=== PATIENT | male | born 1960 | race Two or more races ===

== ENCOUNTER 2024-06-23 08:37 | Inpatient (IN) | payer OTHER ==
[~2024-06-23] VITALS: Ht 172.7 cm; Wt 81.6 kg
[2024-06-23 09:06] VITALS: BP 139/80
[2024-06-23 09:33] LABS: PH,URINE 5.5 (5.0-8.0); URINE APPEARANCE Clear; URINE BILIRRUBIN Negative (NEGATIVE); URINE BLOOD Negative; URINE COLOR Yellow; URINE KETONE Negative (NEGATIVE); URINE LEUKOCYTE Negative; URINE NITRATE Negative; URINE PROTEIN Negative (NEGATIVE); URINE UROBILINOGEN 0.2 E.U./dl
[2024-06-23] MEDS ORDERED: ZETIA10 MG PO (09:37)
[2024-06-23] MEDS ORDERED: TOPROL XL100 M1 PO (09:38)
[2024-06-23] MEDS ORDERED: JARDIANCE25 MG PO (09:38)
[2024-06-23 09:39] LABS: HEMATOCRIT 50.6 % (39.0-48.0); HEMOGLOBIN 17.1 g/dL (13-16.00); MEAN CELL VOLUME 89.2 fL (80.0-100.00); MEAN CORPUSCULAR HEMOGLOBIN 30.1 pg (27.00-32.0); MEAN CORPUSCULAR HGB CONC 33.7 g/dl (32.0-36.0); PLATELET COUNT 187 K/uL (150-450); RED BLOOD COUNT 5.67 M/uL (4.00-6.00)
[2024-06-23] MEDS ORDERED: PLAVIX75 MG PO (09:39)
[2024-06-23] MEDS ORDERED: NORVASC2.5 M1 PO (09:39)
[2024-06-23] MEDS ORDERED: OMEGA-31000 MG PO (09:40)
[2024-06-23] MEDS ORDERED: HYDRODIURIL12.5 MG PO (09:40)
[2024-06-23] MEDS ORDERED: CLONAZEPAM0.5 MG PO (09:40)
[2024-06-23] MEDS ORDERED: CRESTOR40 MG PO (09:40)
[2024-06-23] MEDS ORDERED: VASOTEC2.5 MG (09:41)
[2024-06-23] MEDS ORDERED: FLUOR OP OPHT (09:42)
[2024-06-23] MEDS ORDERED: LATANOPROST2.5 ML OP (09:42)
[2024-06-23] MEDS ORDERED: BUPROPION XL450 MG (09:43)
[2024-06-23 09:44] LABS: URINE BACTERIA 8.5 uL (0.0-1933); URINE EPITHELIAL CELLS 1.8 uL (0.0-38.8); URINE WBC 2.5 uL (0.0-23.2)
[2024-06-23 10:06] LABS: INR 1.03; PARTIAL THROMBOPLASTIN TIME 29.9 SECONDS (22.0-34.0); PROTHROMBIN TIME 11.2 SECONDS (9.0-11.5)
[2024-06-23 10:18] LABS: URINE GLUCOSE >=1000 MG/DL (NEGATIVE); URINE RBC 1.4 uL (0.0-20.8)
[2024-06-23 10:30] LABS: ALBUMIN 4.2 gm/dL (3.4-5.0); BILIRUBIN TOTAL 0.84 mg/dL (0.3-1.2); CALCIUM 9.7 mg/dL (8.5-10.1); CREATININE SERUM 0.92 mg/dL (0.70-1.30); GFR 83.36; POTASSIUM 4.46 mEq/L (3.5-5.1); TOTAL PROTEIN 7.2 gm/dL (6.4-8.2)
[2024-06-23 11:08] LABS: RH NEGATIVE
[2024-07-02] MEDS ORDERED: ENOXAPARIN SODIUM 40 MG/0.4 ML SYRINGE SUBCUTANEO ONE (09:38)
[2024-07-02] MEDS ORDERED: CEFAZOLIN SODIUM 1,000 MG VIAL ONE ×2 (09:39→17:25)
[2024-07-02] MEDS ORDERED: BUPIVACAINE HCL/MPF 0.5% 30ML VIAL ONE (10:50)
[2024-07-02] MEDS ORDERED: HEMOSTATIC MATRIX 1 KIT KIT TOP ONE (10:50)
[2024-07-02] MEDS ORDERED: SURGIFLO APPLICATOR 1 EACH APPL TOP ONE (10:50)
[2024-07-02] MEDS ORDERED: SUGAMMADEX SODIUM 200 MG/2 ML VIAL IV ONE (14:58)
[2024-07-02] MEDS ORDERED: OxyCODONE HCL/APAP UD (PERCOCET) PO PRN (16:00)
[2024-07-02] MEDS ORDERED: RINGERS SOLUTION,LACTATED 1,000 ML IV SCH (16:00)
[2024-07-02] MEDS ORDERED: ONDANSETRON HCL 2 MG/ML VIAL IV PRN (16:00)
[2024-07-02] MEDS ORDERED: MORPHINE SULFATE 4 MG/ML CARTRIDGE IV PRN (16:00)
[2024-07-02] MEDS ORDERED: POLYETHYLENE GLYCOL 3350 17 GM BLIST.PACK PO SCH (17:00)
[2024-07-02] MEDS ORDERED: GABAPENTIN 300 MG CAPSULE PO SCH (17:00)
[2024-07-02] MEDS ORDERED: CEFAZOLIN SODIUM 1,000 MG VIAL IV SCH (18:00)
[2024-07-02] MEDS ORDERED: MORPHINE SULFATE 4 MG/ML VIAL IV ONE (19:15)
[2024-07-02] MEDS ORDERED: CLONAZEPAM 0.5 MG TABLET PO SCH (21:00)
[2024-07-02] MEDS ORDERED: FAMOTIDINE/PF 20 MG/2 ML VIAL IV SCH (21:00)
[2024-07-02] MEDS ORDERED: FAMOTIDINE/PF 20 MG/2 ML VIAL ONE (21:14)
[2024-07-03 00:43] VITALS: BP 99/57; O2SAT 98
[2024-07-03 06:50] LABS: HEMATOCRIT 41.7 % (39.0-48.0); HEMOGLOBIN 14.7 g/dL (13-16.00); MEAN CELL VOLUME 86.9 fL (80.0-100.00); MEAN CORPUSCULAR HEMOGLOBIN 30.6 pg (27.00-32.0); MEAN CORPUSCULAR HGB CONC 35.2 g/dl (32.0-36.0); PLATELET COUNT 164 K/uL (150-450)
[2024-07-03 07:32] LABS: ALBUMIN 3.1 gm/dL (3.4-5.0); CALCIUM 8.2 mg/dL (8.5-10.1); CREATININE SERUM 0.94 mg/dL (0.70-1.30); GFR 81.32; PHOSPHOROUS 3.8 mg/dL (2.5-4.9); POTASSIUM 4.43 mEq/L (3.5-5.1)
[2024-07-03 08:12] VITALS: BP 142/70; O2SAT 95
[2024-07-03 08:31] VITALS: BP 148/72; O2SAT 96
[2024-07-03] MEDS ORDERED: ENOXAPARIN SODIUM 40 MG/0.4 ML SYRINGE SUBCUTANEO SCH (09:00)
[2024-07-03] MEDS ORDERED: METOPROLOL SUCCINATE 100 MG TAB.SR.24H PO SCH (09:00)
[2024-07-03] MEDS ORDERED: HYDROCHLOROTHIAZIDE 12.5 MG CAPSULE PO SCH (09:00)
[2024-07-03] MEDS ORDERED: AMLODIPINE BESYLATE 2.5 MG TABLET PO SCH (09:00)
[2024-07-03] MEDS ORDERED: ENALAPRIL MALEATE 2.5 MG TABLET PO SCH (09:00)
== END 2024-07-03 10:29 | disposition home or self-care (01) | DRG 708 ==
LOC: CIR.AMB 07-02 07:57 → O/R 07-02 08:00 → CIR.AMB 07-02 08:07 → O/R 07-02 09:33 → CIR.AMB 07-02 12:30 → EDSTATUS 07-02 12:30 → SURH 07-02 12:30
PROVIDERS: ADMIT Urology; ATTEND Urology
PROC: 8E0W4CZ Robotic Assisted Procedure of Trunk Region, Percutaneous Endoscopic Approach (ICD-10-PCS; 2024-07-02)
PROC: 0VT04ZZ Resection of Prostate, Percutaneous Endoscopic Approach (ICD-10-PCS; principal; 2024-07-02 12:30)
DX: C61 Malignant neoplasm of prostate (principal)
CPT/HCPCS: 55866; S2900

== ENCOUNTER 2024-07-09 09:40 | Outpatient (CLI) | payer OTHER ==
[~2024-07-09 09:40] MED LIST: BUPROPION XL450 MG; CLONAZEPAM0.5 MG PO; CRESTOR40 MG PO; FLUOR OP OPHT; HYDRODIURIL12.5 MG PO; JARDIANCE25 MG PO; LATANOPROST2.5 ML OP; NORVASC2.5 M1 PO; OMEGA-31000 MG PO; PLAVIX75 MG PO; TOPROL XL100 M1 PO; VASOTEC2.5 MG; ZETIA10 MG PO
== END 2024-07-09 09:44 | disposition home or self-care (01) ==
LOC: TOM 09:40
PROVIDERS: ATTEND Urology
DX: C61 Malignant neoplasm of prostate (principal)

== ENCOUNTER 2024-07-21 15:29 | Inpatient (IN) | payer OTHER ==
[~2024-07-21] VITALS: Ht 172.7 cm; Wt 74.4 kg
[2024-07-21] MEDS ORDERED: HYDROCHLOROTH12.5 MG (15:54)
[2024-07-21] MEDS ORDERED: ENALAPRIL MALEA10 MG PO (15:55)
[2024-07-21] MEDS ORDERED: TOPROL XL100 M1 PO (15:55)
[2024-07-21] MEDS ORDERED: AMLODIPINE (15:55)
[2024-07-21] MEDS ORDERED: OMEGA-31000 MG PO (15:56)
[2024-07-21] MEDS ORDERED: EZALLOR SPRINKL40 MG PO (15:56)
[2024-07-21] MEDS ORDERED: EZETIMIBE10 MG PO (15:56)
[2024-07-21] MEDS ORDERED: CLONAZEPAM0.5 M1 PO (15:57)
--- NOTE | 2024-07-21 15:58 | NUR ---
PTE ALERTA Y ORIENTADOI X3 REFIERE QUE FUE OPERADO POR EL DR. ZULEYMA RODRIGUEZ EL DE LA PRESTATA. PTE REFIERE DOLRO PELVICO, ORINAR POCO Y KEESHA EN LA ORINA. SE MIDEN S/V Y SE UBICA.
[2024-07-21] MEDS ORDERED: CEFTRIAXONE SODIUM 2,000 MG VIAL IV ONE (16:45)
[2024-07-21 17:05] LABS: HEMATOCRIT 44.6 % (39.0-48.0); HEMOGLOBIN 14.8 g/dL (13-16.00); MEAN CELL VOLUME 88.5 fL (80.0-100.00); MEAN CORPUSCULAR HEMOGLOBIN 29.4 pg (27.00-32.0); MEAN CORPUSCULAR HGB CONC 33.3 g/dl (32.0-36.0); PLATELET COUNT 405 K/uL (150-450); RED BLOOD COUNT 5.04 M/uL (4.00-6.00); RED CELL DISTRIBUTION WIDTH 13.3 % (11.5-14.5)
[2024-07-21 17:06] LABS: URINE APPEARANCE Cloudy; URINE BILIRRUBIN Negative (NEGATIVE); URINE BLOOD Large; URINE COLOR Orange; URINE KETONE Negative (NEGATIVE); URINE LEUKOCYTE Moderate; URINE NITRATE Negative; URINE UROBILINOGEN 0.2 E.U./dl
[2024-07-21 17:12] LABS: URINE BACTERIA 165.2 uL (0.0-1933); URINE EPITHELIAL CELLS 4.9 uL (0.0-38.8); URINE WBC 1170.3 uL (0.0-23.2)
[2024-07-21 17:14] LABS: URINE CAST 0.44 uL (0.0-1.40); URINE GLUCOSE >=1000 MG/DL (NEGATIVE); URINE PROTEIN 100 (NEGATIVE); URINE RBC > 10558.9 uL (0.0-20.8)
[2024-07-21 17:32] LABS: ALBUMIN 3.2 gm/dL (3.4-5.0); BILIRUBIN TOTAL 0.27 mg/dL (0.3-1.2); CALCIUM 9.5 mg/dL (8.5-10.1); CREATININE SERUM 1.05 mg/dL (0.70-1.30); GFR 72.29; GLOBULINA 4.6 G/DL (2.4-3.5); POTASSIUM 4.67 mEq/L (3.5-5.1); TOTAL PROTEIN 7.8 gm/dL (6.4-8.2)
[2024-07-21] MEDS ORDERED: OxyCODONE HCL/APAP UD (PERCOCET) PO ONE (18:00)
--- NOTE | 2024-07-21 18:05 | NUR ---
SE EDUCA PACIENTE SOBRE EL [place] MEDICO Y MIGUELITO REFIERE ENTENDER. SE CANALIZA Y SE ADMINITRA MEDICAMENTOS DEMETRI ORDEN MEDICA. SE SHIRAZ MUESTRAS DE LABORATORIOS Y SE ENTREGA ENVASE DE U/A Y U/C
[2024-07-21] MEDS ORDERED: 0.9 % SODIUM CHLORIDE 1,000 ML IV SCH ×2 (20:00→23:45)
--- NOTE | 2024-07-21 22:18 | NUR ---
DR.SOTO VINCENT PALM [address] [facility].
[2024-07-21] MEDS ORDERED: CEFTRIAXONE SODIUM 2,000 MG in 0.9 % SODIUM CHLORIDE 100 ML IV SCH (23:34)
[2024-07-21] MEDS ORDERED: CLONAZEPAM 1 MG TABLET PO SCH (23:35)
[2024-07-21] MEDS ORDERED: FAMOTIDINE/PF 20 MG in 0.9 % SODIUM CHLORIDE 8 ML IV PUSH SCH (23:35)
[2024-07-21] MEDS ORDERED: AMLODIPINE BESYLATE 2.5 MG TABLET PO SCH (23:39)
[2024-07-21] MEDS ORDERED: ENALAPRIL MALEATE 10 MG TABLET PO SCH (23:40)
[2024-07-21] MEDS ORDERED: ACETAMINOPHEN 500 MG GEL..CAP PO PRN (23:45)
[2024-07-22 01:11] VITALS: BP 150/70; O2SAT 100
[2024-07-22] MEDS ORDERED: MORPHINE SULFATE 4 MG/ML CARTRIDGE IV ONE (01:15)
[2024-07-22 01:29] LABS: INR 1.1; PARTIAL THROMBOPLASTIN TIME 30.5 SECONDS (22.0-34.0); PROTHROMBIN TIME 11.9 SECONDS (9.0-11.5)
[2024-07-22 04:27] VITALS: BP 155/73; O2SAT 95
[2024-07-22] MEDS ORDERED: HYDROCHLOROTHIAZIDE 12.5 MG CAPSULE PO SCH (09:00)
[2024-07-22] MEDS ORDERED: METOPROLOL SUCCINATE 100 MG TAB.SR.24H PO SCH (09:00)
[2024-07-22] MEDS ORDERED: OXYBUTYNIN CHLORIDE 5 MG TABLET PO NR (11:30)
[2024-07-22 12:04] VITALS: BP 180/90
[2024-07-22 16:31] VITALS: BP 141/79; O2SAT 99
[2024-07-22 17:04] LABS: HEMATOCRIT 44.3 % (39.0-48.0); HEMOGLOBIN 14.5 g/dL (13-16.00); MEAN CELL VOLUME 88.3 fL (80.0-100.00); MEAN CORPUSCULAR HEMOGLOBIN 28.9 pg (27.00-32.0); MEAN CORPUSCULAR HGB CONC 32.7 g/dl (32.0-36.0); PLATELET COUNT 425 K/uL (150-450); RED BLOOD COUNT 5.02 M/uL (4.00-6.00); RED CELL DISTRIBUTION WIDTH 13.1 % (11.5-14.5)
[2024-07-23 01:22] VITALS: BP 137/74
[2024-07-23 06:10] LABS: HEMATOCRIT 47.1 % (39.0-48.0); HEMOGLOBIN 15.9 g/dL (13-16.00); MEAN CELL VOLUME 87.6 fL (80.0-100.00); MEAN CORPUSCULAR HEMOGLOBIN 29.5 pg (27.00-32.0); MEAN CORPUSCULAR HGB CONC 33.7 g/dl (32.0-36.0); PLATELET COUNT 450 K/uL (150-450); RED BLOOD COUNT 5.38 M/uL (4.00-6.00); RED CELL DISTRIBUTION WIDTH 13.4 % (11.5-14.5)
[2024-07-23 07:02] LABS: ALBUMIN 2.9 gm/dL (3.4-5.0); BILIRUBIN TOTAL 0.29 mg/dL (0.3-1.2); CREATININE SERUM 0.86 mg/dL (0.70-1.30); GFR 90.11; GLOBULINA 3.6 G/DL (2.4-3.5); MAGNESIUM 2.4 mg/dL (1.8-2.4); PHOSPHOROUS 4.1 mg/dL (2.5-4.9); POTASSIUM 5.08 mEq/L (3.5-5.1); TOTAL PROTEIN 6.5 gm/dL (6.4-8.2)
[2024-07-23 07:03] LABS: C-REACTIVE PROTEIN 2.35 MG/DL (0.00-0.29)
[2024-07-23] MEDS ORDERED: OXYBUTYNIN CHLORIDE 5 MG TABLET PO SCH (09:00)
[2024-07-23 09:26] VITALS: BP 137/76; O2SAT 98
[2024-07-23 10:11] LABS: HEMATOCRIT 44.1 % (39.0-48.0); HEMOGLOBIN 15.1 g/dL (13-16.00); MEAN CELL VOLUME 86.9 fL (80.0-100.00); MEAN CORPUSCULAR HEMOGLOBIN 29.8 pg (27.00-32.0); MEAN CORPUSCULAR HGB CONC 34.3 g/dl (32.0-36.0); PLATELET COUNT 394 K/uL (150-450); RED BLOOD COUNT 5.07 M/uL (4.00-6.00); RED CELL DISTRIBUTION WIDTH 13.6 % (11.5-14.5)
[2024-07-23 18:00] VITALS: BP 122/67; O2SAT 97
[2024-07-24 02:01] VITALS: BP 118/67
[2024-07-24 08:00] VITALS: BP 128/63
[2024-07-24] MEDS ORDERED: CIPROFLOXACIN IN 5 % DEXTROSE 400 MG/200 ML PIGGYBAG IV SCH (17:00)
[2024-07-24 19:24] VITALS: BP 139/71; O2SAT 98
[2024-07-24] MEDS ORDERED: FAMOtidine 20 MG TABLET PO SCH (21:00)
[2024-07-24] MEDS ORDERED: DOCUSATE SODIUM 100MG CAP PO SCH (21:00)
[2024-07-25 04:01] VITALS: BP 116/64
[2024-07-25 08:53] VITALS: BP 139/65
[2024-07-25 18:29] VITALS: BP 138/68; O2SAT 97
[2024-07-26 00:55] VITALS: BP 145/67; O2SAT 97
[2024-07-26 08:04] VITALS: BP 144/68
[2024-07-26] MEDS ORDERED: HYDROCHLOROTH12.5 MG PO (16:35)
[2024-07-26] MEDS ORDERED: ZETIA10 MG PO (16:35)
[2024-07-26] MEDS ORDERED: CIPRO500 MG PO (16:35)
[2024-07-26] MEDS ORDERED: INTESTINEX680 M2 PO (16:35)
[2024-07-26] MEDS ORDERED: JARDIANCE25 MG PO (16:35)
[2024-07-26] MEDS ORDERED: VASOTEC10 MG PO (16:35)
[2024-07-26] MEDS ORDERED: NORVASC2.5 M1 PO (16:35)
[2024-07-26] MEDS ORDERED: FAMOTIDINE20 MG PO (16:35)
[2024-07-26 17:48] VITALS: BP 149/71; O2SAT 100
== END 2024-07-26 19:34 | disposition home or self-care (01) | DRG 690 ==
LOC: ER → EDBD 18:35 → ER 18:35 → MEDJ 23:37 → SURG 23:37 → MEDJ 07-22 02:01
PROVIDERS: General Practice; Internal Medicine; Internal Medicine Infectious Disease; ADMIT Internal Medicine; ATTEND Internal Medicine
PROC: BW2GZZZ Computerized Tomography (CT Scan) of Pelvic Region (ICD-10-PCS; 2024-07-22)
PROC: 8E0ZXY6 Isolation (ICD-10-PCS; principal; 2024-07-23)
PROC: BW21ZZZ Computerized Tomography (CT Scan) of Abdomen and Pelvis (ICD-10-PCS; 2024-07-23)
DX: N39.0 Urinary tract infection, site not specified (principal); R31.9 Hematuria, unspecified; B96.20 Unspecified Escherichia coli [E. coli] as the cause of diseases classified elsewhere; C61 Malignant neoplasm of prostate; R33.9 Retention of urine, unspecified

== ENCOUNTER 2024-08-21 07:41 | Outpatient (CLI) | payer OTHER ==
[~2024-08-21 07:41] MED LIST changes: +AMLODIPINE; +CIPRO500 MG PO; +CLONAZEPAM0.5 M1 PO; +ENALAPRIL MALEA10 MG PO; +EZALLOR SPRINKL40 MG PO; +EZETIMIBE10 MG PO; +FAMOTIDINE20 MG PO; +HYDROCHLOROTH12.5 MG; +HYDROCHLOROTH12.5 MG PO; +INTESTINEX680 M2 PO; +VASOTEC10 MG PO
== END 2024-08-21 07:49 | disposition home or self-care (01) ==
LOC: TOM 07:41 → MRI 07:41
PROVIDERS: ATTEND Urology
DX: C61 Malignant neoplasm of prostate (principal)
CPT/HCPCS: 72194; Q9965

== ENCOUNTER 2024-08-22 03:24 | Emergency (ER) | payer OTHER ==
[~2024-08-22] VITALS: Ht 172.7 cm; Wt 74.8 kg
[2024-08-22] MEDS ORDERED: CIPROFLOXACIN IN 5 % DEXTROSE 400 MG/200 ML PIGGYBAG IV STA (04:09)
[2024-08-22] MEDS ORDERED: KETOROLAC TROMETHAMINE 30 MG VIAL IV STA (04:09)
[2024-08-22] MEDS ORDERED: OxyCODONE HCL/APAP UD (PERCOCET) PO STA (04:10)
[2024-08-22] MEDS ORDERED: 0.9 % SODIUM CHLORIDE 1,000 ML IV STA (04:10)
[2024-08-22] MEDS ORDERED: KETOROLAC TROMETHAMINE 30 MG VIAL ONE (04:12)
[2024-08-22] MEDS ORDERED: CIPROFLOXACIN IN 5 % DEXTROSE 400 MG/200 ML PIGGYBAG IV ONE (04:12)
[2024-08-22] MEDS ORDERED: TRAMADOL HCL 50 MG TABLET PO STA (04:13)
[2024-08-22 04:27] LABS: HEMATOCRIT 45.4 % (39.0-48.0); HEMOGLOBIN 15.5 g/dL (13-16.00); MEAN CELL VOLUME 86.6 fL (80.0-100.00); MEAN CORPUSCULAR HEMOGLOBIN 29.5 pg (27.00-32.0); MEAN CORPUSCULAR HGB CONC 34.1 g/dl (32.0-36.0); PLATELET COUNT 197 K/uL (150-450); RED BLOOD COUNT 5.25 M/uL (4.00-6.00); RED CELL DISTRIBUTION WIDTH 14.1 % (11.5-14.5)
[2024-08-22 04:45] LABS: CALCIUM 9.4 mg/dL (8.5-10.1); CREATININE SERUM 0.96 mg/dL (0.70-1.30); GFR 79.37; POTASSIUM 3.98 mEq/L (3.5-5.1)
[2024-08-22 05:32] LABS: PH,URINE 5.5 (5.0-8.0); URINE APPEARANCE Cloudy; URINE BILIRRUBIN Negative (NEGATIVE); URINE BLOOD Large; URINE COLOR Yellow; URINE KETONE Negative (NEGATIVE); URINE LEUKOCYTE Moderate; URINE NITRATE Positive
[2024-08-22 05:35] LABS: URINE BACTERIA 844.4 uL (0.0-1933); URINE EPITHELIAL CELLS 3.6 uL (0.0-38.8); URINE RBC 2767.9 uL (0.0-20.8); URINE WBC 2297.8 uL (0.0-23.2)
[2024-08-22 05:38] LABS: URINE CAST 0.29 uL (0.0-1.40); URINE GLUCOSE >=1000 MG/DL (NEGATIVE); URINE PROTEIN 100 (NEGATIVE)
== END 2024-08-22 07:21 | disposition home or self-care (01) ==
LOC: ER 03:26
DX: N39.0 Urinary tract infection, site not specified (principal); R30.0 Dysuria; E11.9 Type 2 diabetes mellitus without complications
CPT/HCPCS: 36415; 96365; 96366; 99282; J1885; J3490; J7030